=== PATIENT | female | born 1960 | race Caucasian/White ===

== ENCOUNTER 2019-03-21 18:05 | Inpatient (IN) | payer BC, OTHER, SELFPAY ==
[~2019-03-21] VITALS: Ht 149.9 cm; Wt 56.5 kg
[2019-03-21] MEDS ORDERED: SODIUM CHLORIDE FLUSH 10ML SYR IVF ONE (18:30)
[2019-03-21] MEDS ORDERED: PLEASE ENTER HEIGHT AND WEIGHT MC SCH (18:30)
[2019-03-21] MEDS ORDERED: PLEASE ENTER ALLERGIES MC SCH (18:30)
[2019-03-21 18:40] LABS: BASOPHILS # (AUTO) 0.05 x10^3/uL (0-0.1); BASOPHILS % (AUTO) 1 % (0-1); EOSINOPHILS # (AUTO) 0.04 x10^3/uL (0-0.4); EOSINOPHILS % (AUTO) 1 % (1-7); LYMPHOCYTES # (AUTO) 2.36 x10^3/uL (1-3.4); LYMPHOCYTES % (AUTO) 40 % (22-44); MD NO; MEAN CORPUSCULAR HEMOGLOBIN 29.2 pg (27.0-34.8); MEAN CORPUSCULAR HGB CONC 33.5 g/dL (32.4-35.8); MEAN CORPUSCULAR VOLUME 87.3 fL (80-100); MEAN PLATELET VOLUME 7.5 fL (7.4-10.4); MONOCYTES # (AUTO) 0.42 x10^3/uL (0.2-0.8); MONOCYTES % (AUTO) 7 % (2-9); NEUTROPHILS % (AUTO) 52 % (42-75); PLATELET COUNT 322 x10^3/uL (130-400); RED BLOOD COUNT 4.58 x10^6/uL (3.82-5.3)
[2019-03-21 18:47] LABS: INTERNATIONAL NORMALIZED RATIO 0.99 (0.93-1.1); PROTHROMBIN TIME 10.4 Seconds (9.6-11.5)
[2019-03-21 18:51] LABS: ALBUMIN 3.7 g/dL (3.4-5.0); ANION GAP 7 mmol/L (5-15); CALCIUM 8.1 mg/dL (8.5-10.1); CHLORIDE 114 mmol/L (98-107); CREATININE 0.85 mg/dL (0.55-1.02)
[2019-03-21] MEDS ORDERED: COLC0.6T37 PO ×2 (18:52→21:12)
[2019-03-21] MEDS ORDERED: METO50TA82 PO (18:52)
[2019-03-21] MEDS ORDERED: APIX5TAB PO (18:52)
--- NOTE | 2019-03-21 18:57 | NUR ---
PT RESTING ON GURNEY, DENIES NEEDS, MONITORS IN PLACE, CALL LIGHT WITHIN REACH. AWAITING TRANSFER FOR ADMIT
[2019-03-21] MEDS ORDERED: SODIUM CHLORIDE FLUSH 10ML SYR IVF PRN (19:00)
[2019-03-21 19:03] LABS: TROPONIN I 0.234 ng/mL (0.000-0.045)
--- NOTE | 2019-03-21 19:04 | NUR ---
REPORT TO KISHORE MERCADO, PT READY FOR TRANSPORT. ON ARRIVAL PT PLACED ON HEART MONITOR, BP CUFF, PULSE OX. PT DENIES CP, STATES ONLY DISCOMFORT SOME SWELLING OF R HAND. NO VISIBLE SWELLING AT THIS TIME, PT STATES ICE APPLIED DURING TRANSPORT.
--- NOTE | 2019-03-21 19:05 | NUR ---
EXTERMINATORDARY DE LEÓN ON TELEPHONE, NOTIFIED CRITICAL TROPONIN 0.234, ERP UPDATED, NO NEW ORDERS RECEIVED AT THIS TIME
[2019-03-21] MEDS ORDERED: DOCUSATE 100 MG CAPSULE PO PRN (20:30)
[2019-03-21] MEDS ORDERED: LIDODERM 5% PATCH TD PRN (20:30)
[2019-03-21] MEDS ORDERED: TEMAZEPAM 15 MG CAPSULE PO PRN (20:30)
[2019-03-21] MEDS ORDERED: ONDANSETRON ODT 4 MG PO PRN (20:30)
[2019-03-21] MEDS ORDERED: METO25TA35 PO (21:12)
[2019-03-21 21:13] VITALS: BP 110/73
[2019-03-21] MEDS: METOPROLOL TARTRATE 50 MG TABLET PO SCH (21:59)
[2019-03-21] MEDS: APIXABAN 5 MG TABLET PO SCH (21:59)
[2019-03-21] MEDS: COLCHICINE 0.6 MG TABLET PO SCH (21:59)
[2019-03-21 22:00] VITALS: BP 95/65
[2019-03-22 01:11] VITALS: BP 104/66
[2019-03-22 01:33] LABS: TROPONIN I 0.215 ng/mL (0.000-0.045)
[2019-03-22 06:45] VITALS: BP 98/59
[2019-03-22 07:08] LABS: BASOPHILS # (AUTO) 0.04 x10^3/uL (0-0.1); BASOPHILS % (AUTO) 1 % (0-1); EOSINOPHILS # (AUTO) 0.04 x10^3/uL (0-0.4); EOSINOPHILS % (AUTO) 1 % (1-7); LYMPHOCYTES # (AUTO) 1.62 x10^3/uL (1-3.4); LYMPHOCYTES % (AUTO) 40 % (22-44); MD NO; MEAN CORPUSCULAR HEMOGLOBIN 28.4 pg (27.0-34.8); MEAN CORPUSCULAR HGB CONC 33.1 g/dL (32.4-35.8); MEAN CORPUSCULAR VOLUME 85.9 fL (80-100); MEAN PLATELET VOLUME 7.1 fL (7.4-10.4); MONOCYTES # (AUTO) 0.29 x10^3/uL (0.2-0.8); MONOCYTES % (AUTO) 7 % (2-9); NEUTROPHILS # (AUTO) 2.08 x10^3/uL (1.8-6.8); NEUTROPHILS % (AUTO) 51 % (42-75); PLATELET COUNT 277 x10^3/uL (130-400); RED BLOOD COUNT 4.13 x10^6/uL (3.82-5.3); RED CELL DISTRIBUTION WIDTH 14.8 % (9.6-15.2)
[2019-03-22 07:19] LABS: ANION GAP 8 mmol/L (5-15); CALCIUM 8.3 mg/dL (8.5-10.1); CHLORIDE 112 mmol/L (98-107)
[2019-03-22 07:23] LABS: TROPONIN I 0.162 ng/mL (0.000-0.045)
[2019-03-22] MEDS: COLCHICINE 0.6 MG TABLET PO SCH ×2 (07:52→20:02)
[2019-03-22] MEDS: METOPROLOL TARTRATE 50 MG TABLET PO SCH (07:52)
[2019-03-22] MEDS: APIXABAN 5 MG TABLET PO SCH ×2 (07:53→20:02)
[2019-03-22] MEDS ORDERED: COLCHICINE 0.6 MG TABLET PO SCH (09:00)
[2019-03-22] MEDS ORDERED: KETOROLAC 30 MG/1 ML IM PRN (12:30)
[2019-03-22 12:40] VITALS: BP 126/82
[2019-03-22 15:57] LABS: HCT (SEDRATE) 38.1 % (34.6-47.8)
[2019-03-22] MEDS: SOTALOL 80MG TABLET PO SCH (18:07)
[2019-03-22 21:04] VITALS: BP 121/78
[2019-03-23] VITALS (11 sets, daily range): BP systolic 115–146; BP diastolic 74–83
[2019-03-23] MEDS: SOTALOL 80MG TABLET PO SCH ×2 (06:09→18:29)
[2019-03-23] MEDS: COLCHICINE 0.6 MG TABLET PO SCH ×2 (08:22→19:56)
[2019-03-23] MEDS: APIXABAN 5 MG TABLET PO SCH (08:22)
[2019-03-23] MEDS: KETOROLAC 30 MG/1 ML IV PRN ×2 (08:22→19:09)
[2019-03-23] MEDS ORDERED: NITROGLYCERIN 0.4 MG/SPRAY SL PRN (11:00)
[2019-03-23] MEDS: NITROGLYCERIN 0.4 MG BOTTLE (25 TABS) SL PRN ×4 (11:05→15:17)
[2019-03-23 11:37] LABS: TROPONIN I 0.057 ng/mL (0.000-0.045)
[2019-03-23 13:56] LABS: TROPONIN I 0.054 ng/mL (0.000-0.045)
[2019-03-23] MEDS ORDERED: ATORVASTATIN 40 MG TABLET PO SCH (21:00)
[2019-03-24 01:52] VITALS: BP 125/70
[2019-03-24 05:13] LABS: BASOPHILS # (AUTO) 0.02 x10^3/uL (0-0.1); BASOPHILS % (AUTO) 0 % (0-1); EOSINOPHILS # (AUTO) 0.04 x10^3/uL (0-0.4); EOSINOPHILS % (AUTO) 1 % (1-7); LYMPHOCYTES # (AUTO) 1.82 x10^3/uL (1-3.4); LYMPHOCYTES % (AUTO) 41 % (22-44); MD NO; MEAN CORPUSCULAR HEMOGLOBIN 29.4 pg (27.0-34.8); MEAN CORPUSCULAR HGB CONC 33.6 g/dL (32.4-35.8); MEAN CORPUSCULAR VOLUME 87.4 fL (80-100); MONOCYTES # (AUTO) 0.33 x10^3/uL (0.2-0.8); MONOCYTES % (AUTO) 8 % (2-9); NEUTROPHILS % (AUTO) 50 % (42-75); PLATELET COUNT 262 x10^3/uL (130-400); RED BLOOD COUNT 4.01 x10^6/uL (3.82-5.3); RED CELL DISTRIBUTION WIDTH 14.7 % (9.6-15.2)
[2019-03-24 05:25] LABS: ALBUMIN 3.2 g/dL (3.4-5.0); ANION GAP 8 mmol/L (5-15); CALCIUM 8.6 mg/dL (8.5-10.1); CHLORIDE 108 mmol/L (98-107)
[2019-03-24 05:28] LABS: ALANINE AMINOTRANSFERASE 50 U/L (12-78); BILIRUBIN,TOTAL 0.7 mg/dL (0.2-1.0); CREATININE 0.86 mg/dL (0.55-1.02)
[2019-03-24 05:29] LABS: ALKALINE PHOSPHATASE 59 U/L (45-117); CHOL/HDL RATIO 2.4; CHOLESTEROL, TOTAL 150 mg/dL (140-239); HDL CHOL % 42 % (28-40); HDL CHOLESTEROL (DIRECT) 63 mg/dL (40-60); LDL CHOLESTEROL,CALCULATED 65 mg/dL (54-169); TOTAL PROTEIN 5.9 g/dL (6.4-8.2); TRIGLYCERIDES 109 mg/dL (50-200); VLDL CHOLESTEROL 22 mg/dL (0-25)
[2019-03-24 06:54] VITALS: BP 119/76
[2019-03-24] MEDS: COLCHICINE 0.6 MG TABLET PO SCH (07:55)
[2019-03-24] MEDS: SOTALOL 80MG TABLET PO SCH ×2 (07:55→18:18)
[2019-03-24] MEDS: NITROGLYCERIN 0.4 MG BOTTLE (25 TABS) SL PRN ×2 (10:32→10:45)
[2019-03-24] MEDS ORDERED: ACETAMINOPHEN 325 MG TABLET ONE (10:42)
[2019-03-24] MEDS ORDERED: SODIUM CHLORIDE 0.9% 1,000 ML IV SCH ×2 (11:00→14:30)
[2019-03-24] MEDS ORDERED: ACETAMINOPHEN 325 MG TABLET PO PRN (11:00)
[2019-03-24 12:23] VITALS: BP 113/71
[2019-03-24] MEDS ORDERED: FENTANYL PF 100 MCG/2ML ONE (13:09)
[2019-03-24] MEDS ORDERED: LIDOCAINE 1%, 20ML ONE (13:09)
[2019-03-24] MEDS ORDERED: MIDAZOLAM 1 MG/ML, 5ML ONE (13:09)
[2019-03-24] MEDS ORDERED: SOTA80TA18 PO (16:04)
[2019-03-24] MEDS ORDERED: APIXABAN 5 MG TABLET PO SCH (21:00)
== END 2019-03-24 18:46 | disposition home or self-care (01) | DRG 280 ==
LOC: ED 18:53 → EDIP 19:32 → 5SO 19:54
PROVIDERS: ADMIT Family Medicine; ATTEND Family Medicine
PROC: 4A023N7 Measurement of Cardiac Sampling and Pressure, Left Heart, Percutaneous Approach (ICD-10-PCS; principal; 2019-03-24)
PROC: B2111ZZ Fluoroscopy of Multiple Coronary Arteries using Low Osmolar Contrast (ICD-10-PCS; 2019-03-24)
PROC: B2151ZZ Fluoroscopy of Left Heart using Low Osmolar Contrast (ICD-10-PCS; 2019-03-24)
DX: I21.4 Non-ST elevation (NSTEMI) myocardial infarction (principal); I50.31 Acute diastolic (congestive) heart failure; I31.9 Disease of pericardium, unspecified; D68.69 Other thrombophilia; I48.92 Unspecified atrial flutter; I24.8 Other forms of acute ischemic heart disease; I25.10 Atherosclerotic heart disease of native coronary artery without angina pectoris; I48.0 Paroxysmal atrial fibrillation; Z79.01 Long term (current) use of anticoagulants; Z82.49 Family history of ischemic heart disease and other diseases of the circulatory system; Z86.718 Personal history of other venous thrombosis and embolism; Z87.891 Personal history of nicotine dependence; Z88.5 Allergy status to narcotic agent; Z88.8 Allergy status to other drugs, medicaments and biological substances
CPT/HCPCS: 36415; 93458; 99285; J3490; 71046; 80048; 80053; 80061; 82040; 83880; 84439; 84443; 84484; 85025; 85379; 85610; 85651; 85730; 86140; 93005; 93306; 99156; C1769; C1894; G0378; J1885; J2250; J3010; J7030; Q9967